=== PATIENT | female | born 1965 | race Caucasian/White ===

== ENCOUNTER 2016-12-31 19:54 | Emergency (ER) | payer OTHER ==
[~2016-12-31] VITALS: Ht 162.6 cm; Wt 96.0 kg
[~2016-12-31 19:54] MED LIST: ALPRAZOLAM0.5 MG PO; ASPIR-TRIN325 M1 PO; CEFTIN500 MG PO; DELTASONE10 MG PO; HABITROL,NICODE21 MG TD; HEPARIN SO25000 UNIT IV; K-DUR20 MEQ PO; LEXAPRO20 MG PO; Motrin PO; NOHOMEMEDS; OMEPRAZOLE40 M1 PO; OXYCODONE-APAP1 EACH PO; TIZANIDINE HCL4 MG PO; TOPAMAX100 MG PO; ULTRAM50 MG PO; ZITHROMAX250 MG PO
[2016-12-31] MEDS ORDERED: ELIQUIS5 MG PO (20:26)
[2016-12-31] MEDS ORDERED: AMLODIPINE BESYL5 MG PO (20:27)
[2016-12-31] MEDS ORDERED: OFLOXACIN10 M1 RIGHT EYE (21:43)
[2016-12-31 21:48] VITALS: BP 145/106
== END 2016-12-31 21:49 | disposition home or self-care (01) ==
LOC: EME 19:54
DX: S05.01XA Injury of conjunctiva and corneal abrasion without foreign body, right eye, initial encounter (principal); X58.XXXA Exposure to other specified factors, initial encounter
CPT/HCPCS: 99281; 99285

== ENCOUNTER 2017-06-26 16:35 | Emergency (ER) | payer OTHER ==
[~2017-06-26] VITALS: Ht 162.6 cm; Wt 95.3 kg
[~2017-06-26 16:35] MED LIST changes: +AMLODIPINE BESYL5 MG PO; +ELIQUIS5 MG PO; +OFLOXACIN10 M1 RIGHT EYE
[2017-06-26 17:24] LABS: HEMATOCRIT 42.5 % (36.0-46.0); MCH 30.4 PG (29.0-34.0); MCHC 33.2 G/DL (30.0-36.0); MCV 91.6 FL (83-99); PLATELET COUNT 196 K/uL (156-360); RBC DIS.WIDTH-CV 12.8 % (11.8-14.6); RED BLOOD COUNT 4.64 M/uL (3.80-5.20); WHITE BLOOD COUNT 7.4 K/uL (4.1-10.2)
[2017-06-26 17:32] LABS: INTER. NORMALIZED RATIO 1.1; PROTHROMBIN TIME 11.8 SEC (10.2-12.9)
[2017-06-26 17:34] LABS: D-DIMER ELISA < 150.00 ng/mLDDU (<230)
[2017-06-26 17:40] LABS: CHLORIDE 109 mEq/L (99-109); POTASSIUM 3.7 mEq/L (3.7-5.4); SODIUM 139 mEq/L (136-147)
[2017-06-26 17:41] LABS: GLUCOSE 85 mg/dL (70-99)
[2017-06-26 17:43] LABS: ANION GAP 8 MEQ/L (2-14)
[2017-06-26 17:45] LABS: GFR ESTIMATE (CALCULATED) > 59 mL/min/
[2017-06-26 17:46] LABS: UREA NITROGEN (BUN) 14 mg/dL (9-23)
[2017-06-26 17:51] LABS: TROP-I INTERPRETATION NEGATIVE; TROPONIN-I < 0.01 ng/mL (0.0-0.30)
[2017-06-26] MEDS ORDERED: PROAIR HFA8.5 GM IH (18:55)
[2017-06-26 19:37] VITALS: BP 168/95
== END 2017-06-26 19:38 | disposition home or self-care (01) ==
LOC: EME 16:35
PROVIDERS: Physician Assistant
DX: R06.00 Dyspnea, unspecified (principal); D68.51 Activated protein C resistance; Z86.711 Personal history of pulmonary embolism; Z91.040 Latex allergy status
CPT/HCPCS: 71020; 80048; 84484; 85027; 85379; 85610; 85730; 93005; 99281; 99285

== ENCOUNTER 2017-07-04 20:45 | Emergency (ER) | payer OTHER ==
[~2017-07-04] VITALS: Ht 162.6 cm; Wt 96.2 kg
[~2017-07-04 20:45] MED LIST changes: +PROAIR HFA8.5 GM IH
[2017-07-05 00:02] VITALS: BP 140/88
== END 2017-07-05 00:06 | disposition home or self-care (01) ==
LOC: EME 20:45
DX: S40.022A Contusion of left upper arm, initial encounter (principal); S00.11XA Contusion of right eyelid and periocular area, initial encounter; W19.XXXA Unspecified fall, initial encounter; D68.51 Activated protein C resistance; Z86.711 Personal history of pulmonary embolism; Z79.01 Long term (current) use of anticoagulants
CPT/HCPCS: 73090

== ENCOUNTER → 2017-10-09 | Outpatient (CLI) | payer MEDICARE, OTHER ==
[~2017-10-09] MED LIST changes: -ALPRAZOLAM0.5 MG PO; +CYANOCOBALAM1000 MCG PO; +MEGA BIOTIN10000 MCG PO; +NORVASC10 MG PO; +XANAX1 MG PO
== END | disposition home or self-care (01) ==
LOC: CDC 11:13
DX: Z01.810 Encounter for preprocedural cardiovascular examination (principal); K43.9 Ventral hernia without obstruction or gangrene; I49.1 Atrial premature depolarization; R94.31 Abnormal electrocardiogram [ECG] [EKG]
CPT/HCPCS: 93000

== ENCOUNTER 2017-10-16 05:35 | Day surgery (SDC) | payer OTHER ==
[~2017-10-16] VITALS: Ht 162.6 cm; Wt 95.3 kg
[2017-10-16 06:45] VITALS: BP 121/72
[2017-10-16] MEDS ORDERED: COLACE100 MG PO (09:09)
[2017-10-16] MEDS ORDERED: PERCOCET 10/1 TABLET PO (09:09)
[2017-10-16 11:50] VITALS: BP 130/68
[2017-10-16 12:50] VITALS: BP 120/67
[2017-10-16 13:56] VITALS: BP 128/65
== END 2017-10-16 14:00 | disposition home or self-care (01) ==
LOC: SDC 05:35
PROC: 0WUF4JZ Supplement Abdominal Wall with Synthetic Substitute, Percutaneous Endoscopic Approach (ICD-10-PCS; principal; 2017-10-16)
DX: K43.9 Ventral hernia without obstruction or gangrene (principal); D68.51 Activated protein C resistance; I10 Essential (primary) hypertension; E66.9 Obesity, unspecified; Z68.37 Body mass index [BMI] 37.0-37.9, adult; F41.8 Other specified anxiety disorders; K21.9 Gastro-esophageal reflux disease without esophagitis; Z79.01 Long term (current) use of anticoagulants; Z86.711 Personal history of pulmonary embolism; Z86.718 Personal history of other venous thrombosis and embolism; Z87.891 Personal history of nicotine dependence
CPT/HCPCS: C1781; J0131; J0690; J1100; J1170; J2250; J2405; J2710; J3010; Q0175

== ENCOUNTER 2018-01-20 11:17 | Emergency (ER) | payer OTHER ==
[~2018-01-20] VITALS: Ht 162.6 cm; Wt 98.5 kg
[~2018-01-20 11:17] MED LIST changes: +COLACE100 MG PO; +PERCOCET 10/1 TABLET PO
[2018-01-20 14:35] VITALS: BP 159/78
== END 2018-01-20 14:35 | disposition home or self-care (01) ==
LOC: EME 11:17
DX: S70.11XA Contusion of right thigh, initial encounter (principal); W17.89XA Other fall from one level to another, initial encounter; Z86.718 Personal history of other venous thrombosis and embolism; Z86.711 Personal history of pulmonary embolism; F32.9 Major depressive disorder, single episode, unspecified; G43.909 Migraine, unspecified, not intractable, without status migrainosus; Z87.891 Personal history of nicotine dependence; Z91.040 Latex allergy status; Z88.8 Allergy status to other drugs, medicaments and biological substances
CPT/HCPCS: 93971; 99281; 99283